=== PATIENT | male | born 1945 | race Caucasian/White ===

== ENCOUNTER → 2017-03-14 | Outpatient (CLI) | payer OTHER ==
--- NOTE | 2017-03-14 13:34 | RAD ---
FDG tumor localization scan, PET/CT, 03/14/2017: History: Lung mass Following IV injection of 14.9 mCi of 18 F-FDG, imaging was performed from the skull base to the proximal thighs. The noncontrast CT component was performed for attenuation correction and anatomic localization purposes rather than for primary diagnosis. The patient's blood glucose level at the time of injection was 98 MG/DL. No previous imaging studies are available at this time for correlative purposes. No abnormal FDG uptake is seen in the lungs. The CT component demonstrates mild nonspecific streaky bibasilar opacities. No abnormal mediastinal or hilar FDG uptake is evident. Physiologic activity is present in the neck. No abnormal neck activity is seen. There is mildly increased periarticular activity at both shoulders compatible with arthritis. Normal GI tract and urinary tract activity is present in the abdomen and pelvis. No hypermetabolic abdominal or pelvic lesion is seen. Incidental CT findings include the presence of moderate calcific plaquing of the aorta and coronary arteries. There is a small umbilical hernia containing a nonobstructed loop of bowel. Colonic diverticulosis is present. The prostate gland is at the upper limits of normal in size. IMPRESSION: Negative FDG PET exam.
== END | disposition home or self-care (01) ==
LOC: PETSC 11:44
PROVIDERS: ATTEND Radiology Diagnostic Radiology
DX: C34.31 Malignant neoplasm of lower lobe, right bronchus or lung (principal)
CPT/HCPCS: 78815; A9552